=== PATIENT | female | born 1955 | race Caucasian/White ===

== ENCOUNTER 2021-04-27 11:12 | Emergency (ER) | payer OTHER ==
[~2021-04-27] VITALS: Ht 154.9 cm; Wt 89.4 kg
== END 2021-04-27 17:58 | disposition home or self-care (01) ==
LOC: ER 11:12
DX: M79.662 Pain in left lower leg (principal); M79.661 Pain in right lower leg

== ENCOUNTER 2022-09-28 18:18 | Emergency (ER) | payer OTHER ==
[~2022-09-28] VITALS: Ht 154.9 cm; Wt 78.5 kg
[2022-09-28] MEDS ORDERED: PROAIR HFA8.5 GM (18:43)
[2022-09-28] MEDS ORDERED: UCERIS9 MG (18:44)
[2022-09-28] MEDS ORDERED: SIMVASTATIN5 MG (18:44)
[2022-09-28] MEDS ORDERED: METFORMIN HCL500 M3 (18:45)
[2022-09-28] MEDS ORDERED: LEVSIN/SL0.125 MG (18:45)
[2022-09-29] MEDS ORDERED: LEVOFLOXACIN500 MG PO (01:53)
[2022-09-29] MEDS ORDERED: ZOFRAN8 MG PO (01:53)
== END 2022-09-29 02:05 ==
LOC: ER 18:18
DX: R10.9 Unspecified abdominal pain (principal)